=== PATIENT | male | born 1985 | race Two or more races ===

== ENCOUNTER 2019-01-24 00:45 | Emergency (ER) | payer OTHER ==
[~2019-01-24] VITALS: Ht 165.1 cm; Wt 72.6 kg
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
[2019-01-24] MEDS ORDERED: HYDROCODONE/APAP 5/325MG 1 EACH TABLET PO ONE (01:00)
[2019-01-24] MEDS ORDERED: HYDROCODONE/APAP 5/325MG 1 EACH TABLET ONE (01:01)
[2019-01-24] MEDS ORDERED: AMOX/CLAVULANATE 875 MG TABLET PO ONE (03:30)
[2019-01-24] MEDS ORDERED: AMOX/CLAVULANATE 875 MG TABLET ONE (03:30)
--- NOTE | 2019-01-24 03:37 | NUR ---
DISCHARGE INSTRUCTIONS GIVEN TO PATIENT, VERBALIZED UNDERSTANDING. HEALTH TEACHING GIVEN TO PATIENT. DISCHARGE PAPERS SIGNED BY THE PATIENT. NOTE OK TO BOOK GIVEN TO DIRECTOR FRAUD. PATIENT LEFT THE FACILITY AT THIS TIME AMBULATORY, HANDCUFFED BILATERAL ARMS ESCORTED BY 2 POLICE OFFICERS.
[2019-01-24 03:40] VITALS: BP 129/92
== END 2019-01-24 03:40 ==
LOC: ER 00:52
DX: S02.2XXA Fracture of nasal bones, initial encounter for closed fracture (principal); S00.83XA Contusion of other part of head, initial encounter; S09.8XXA Other specified injuries of head, initial encounter; R51 Headache; F10.10 Alcohol abuse, uncomplicated; Y90.9 Presence of alcohol in blood, level not specified; Y08.89XA Assault by other specified means, initial encounter; Y93.89 Activity, other specified; Y92.89 Other specified places as the place of occurrence of the external cause; Y99.8 Other external cause status
CPT/HCPCS: 70450; 70486; 99284; A6403